=== PATIENT | female | born 1975 | race Caucasian/White ===

== ENCOUNTER 2017-02-12 04:32 | Inpatient (IN) | payer OTHER, SELFPAY ==
[2017-02-12] MEDS ORDERED: Ondansetron ODT 4 MG TAB ONE (04:58)
[2017-02-12] MEDS ORDERED: Ketorolac Tromethamine 30 MG/ML VIAL ONE (04:58)
[2017-02-12 05:03] LABS: Bilirubin Negative (Negative); Blood, Urine Large (Negative); Clarity Slightly Cloudy (Clear); Glucose, Urine (Dipstick) Negative (Negative); Leukocyte Large (Negative); Nitrite Positive (Negative); Protein, Urine (Dipstick) 100 mg/dL (Neg-Trace); Specific Gravity, Urine 1.015 (1.005-1.030); Urobilinogen 0.2 mg/dL (0.2-1.0)
[2017-02-12 05:04] LABS: Pregu Control Bar Appear? YES (CONTROL BAR); Specific Gravity 1.015 (1.002-1.036)
[2017-02-12 05:04] LABS: #Basophils 0.1 thou/uL (0.0-0.2); #Monocytes 0.9 thou/uL (0.11-0.59); #Neutrophils 15.4 thou/uL (1.40-6.50); %Basophils 0.5 % (0.0-1.0); %Eosinophils 0.2 % (0.0-10.0); %Lymphocytes 5.5 % (21.0-51.0); %Monocytes 5.4 % (0.0-10.0); %Neutrophils 88.5 % (42.0-75.0); Mean Corpuscular HGB CONC 32.4 g/dL (32.0-36.0); Mean Corpuscular Hemoglobin 29.1 pg (27.0-31.0); Mean Corpuscular Volume 89.9 fl (81.0-99.0); Mean Platelet Volume 7.1 fL (7.4-10.4); Platelet Count 296 thou/uL (130-400); RBC Distribution Width 12.8 % (11.5-14.5); Red Blood Cell (RBC) Count 4.45 mill/uL (4.20-5.40); White Blood Cell (WBC) Count 17.4 thou/uL (4.8-10.8)
[2017-02-12 05:08] LABS: Bacteria/HPF 4+ HPF (None Seen); RBC/HPF GREATER THAN 50-TNTC HPF (0-3); Squamous Epithelial 0-3 HPF (0-3)
[2017-02-12 05:20] LABS: ALT (SGPT) 48 U/L (0-55); AST (SGOT) 33 U/L (5-34); Albumin 3.8 g/dL (3.5-5.0); Alkaline Phosphatase 118 U/L (40-150); Anion Gap 17 mmol/L (10-20); BUN (Urea Nitrogen) 16 mg/dL (7.0-18.7); Bilirubin, Total 0.8 mg/dL (0.2-1.2); Calc. Creatinine Clearance 0 mL/min (70-130); Calcium 8.9 mg/dL (7.8-10.44); Carbon Dioxide 20 mmol/L (22-29); Chloride 105 mmol/L (98-107); Estimated GFR-MDRD 83; Globulin 3.6 g/dL (2.4-3.5); Glucose 110 mg/dL (70-105); Protein, Total 7.4 g/dL (6.0-8.3); Sodium 138 mmol/L (136-145)
[2017-02-12] MEDS ORDERED: Sodium Chloride 0.9% 1,000 ML ONE (05:24)
[2017-02-12] MEDS ORDERED: Morphine Sulfate 2 MG/ML SYRINGE ONE (05:35)
[2017-02-12] MEDS ORDERED: Ondansetron ODT 4 MG TAB SL PRN (05:59)
[2017-02-12] MEDS ORDERED: Ketorolac Tromethamine 30 MG/ML VIAL IVP PRN (05:59)
[2017-02-12] MEDS ORDERED: HYDROcodone/Acetaminophen 5/325 mg Tablet PO PRN ×2 (05:59)
[2017-02-12] MEDS ORDERED: Ondansetron HCl/PF 4 MG/2 ML Vial IVP PRN (05:59)
[2017-02-12] MEDS ORDERED: Dextrose 5 %-0.45 % NaCl 1,000 ML IV SCH (06:00)
[2017-02-12 06:13] VITALS: BMI 45.8
[2017-02-12] MEDS: Dextrose 5 % And 0.9 % NaCl 1,000 ML IV SCH ×3 (08:00→23:01)
[2017-02-12] MEDS ORDERED: FLU VACC QS2016-17 36MOS UP/PF 0.5 ML SYRINGE IM ONE (09:00)
--- NOTE | 2017-02-12 11:33 | HP ---
CHIEF COMPLAINT: Fever, chills, and dysuria. BRIEF HISTORY: This is a pleasant 41-year-old overweight female, who is not known to me, came to the ER with a 2-day history of fever, chills, nausea, and back pain. She was evaluated and was noticed to have a white count of 17,000, urine showing full field wbc's, and a normal lactic aci d and was decided to be admitted to the hospital for presumed pyelonephritis. She states that she i s having some back pain, but has not noticed any blood in the urine. She has had nausea, but no vom iting and as stated fever and chills. She denies any history of similar episodes in the past. She denies any trauma. She denies any chest pain or shortness of breath. PAST MEDICAL HISTORY: One admission about 3 years ago for some leg pain and shortness of breath. S he was evaluated by Cardiology and everything was negative. She was apparently started on aspirin 8 1 mg once a day. PAST SURGICAL HISTORY: x2 and one ovary removed, she is not sure which one. FAMILY HISTORY: Positive for stroke in her mom at age 43. Dad at a young age of cancer, she i s not sure what type. PSYCHOSOCIAL HISTORY: She denies any tobacco, alcohol or IV drug abuse. She is fairly active and i ndependent. ALLERGIES: PERCOCET, but she can take Vicodin. REVIEW OF SYSTEMS: CARDIOVASCULAR: Denies any chest pain, shortness of breath, palpitations, paroxysmal nocturnal dysp vinay, orthopnea, pedal edema. RESPIRATORY: Denies any chronic cough, expectoration or pleuritic type chest pain. GASTROINTESTINAL: Denies any nausea, vomiting, started does have nausea, but denies any vomiting, d iarrhea, hematemesis, melena, hematochezia. GENITOURINARY SYSTEM: Has noticed dysuria, frequency, and back pain. No hematuria. CENTRAL NERVOUS SYSTEM: No focal numbness, weakness, fainting spells. SHEENT: No difficulty with speech, vision, hearing, or swelling. PHYSICAL EXAMINATION: GENERAL: Very pleasant 41-year-old overweight female, resting comfortably, in no acute di stress. She is tolerating her breakfast. She is alert and awake and oriented x3. VITAL SIGNS: She is afebrile, T-max was 99.4, pulse 88, respirations 18, oxygen saturation 93%, blo od pressure 104/54. CARDIOVASCULAR: S1 and S2+. RESPIRATORY: Normal vesicular breath sounds. ABDOMEN: Soft, obese, nontender, bowel sounds heard in all quadrants. EXTREMITIES: Without cyanosis or clubbing. Peripheral pulses are palpable. She does have some mil d right-sided CVA angle tenderness. CENTRAL NERVOUS SYSTEM: Grossly nonfocal. LABORATORY VALUES: Sodium 138, potassium 4.0, BUN and creatinine 16 and 0.76. Blood sugar is 110. Lactic acid 1.8. AST and ALT are normal. White count is 17.4 with an H\T\H of [address] atelet count of 296. Urinalysis shows large blood, nitrite positive, greater than 50. TNTC, too nu merous to count WBC and RBC with 4+ bacteria. Urine test was negative. IMPRESSION: 1. Pyelonephritis, clinically. 2. Obesity. PLAN: 1. IV Levaquin. 2. IV fluids with D5 normal saline at 100 mL. 3. Pain control and medicines for nausea. 4. Await urine culture. 5. Activity as tolerated. 6. Recheck laboratory values in the morning. 7. Meets criteria for 2 midnight inpatient stay. Discussed with patient in detail and all question s answered.
[2017-02-12] MEDS: Acetaminophen 325 MG TAB PO PRN ×2 (13:21→21:07)
[2017-02-13 05:36] LABS: Band 6 % (5-11); Eosinophils 1 % (0-10); Hemoglobin 10.9 g/dL (12.0-16.0); Lymphocytes 22 % (21-51); MDiff Complete? YES; Mean Corpuscular HGB CONC 31.7 g/dL (32.0-36.0); Mean Corpuscular Hemoglobin 28.9 pg (27.0-31.0); Mean Corpuscular Volume 91.2 fl (81.0-99.0); Mean Platelet Volume 6.9 fL (7.4-10.4); Monocytes 9 % (0-10); Neutrophil 62 % (42-75); PLT Morphology Comment Appears Adequate; Platelet Count 272 thou/uL (130-400); RBC Distribution Width 13.1 % (11.5-14.5); RBC Morphology Normal; Red Blood Cell (RBC) Count 3.77 mill/uL (4.20-5.40); White Blood Cell (WBC) Count 10.9 thou/uL (4.8-10.8)
[2017-02-13 05:37] LABS: Anion Gap 12 mmol/L (10-20); BUN (Urea Nitrogen) 7 mg/dL (7.0-18.7); Calc. Creatinine Clearance 192 mL/min (70-130); Calcium 8.2 mg/dL (7.8-10.44); Carbon Dioxide 21 mmol/L (22-29); Chloride 110 mmol/L (98-107); Estimated GFR-MDRD Greater than 90; Glucose 109 mg/dL (70-105); Sodium 139 mmol/L (136-145)
[2017-02-13] MEDS: Dextrose 5 % And 0.9 % NaCl 1,000 ML IV SCH ×3 (07:33→14:12)
--- NOTE | 2017-02-13 16:38 | PRG ---
DATE OF SERVICE: 02/13/2017 SUBJECTIVE: Ms. Thayer is feeling much better. She denies any further episodes of chills and h er back pain is almost resolved. She denies any dysuria or hematuria. Denies any nausea or vomitin g. Tolerating her antibiotics. OBJECTIVE: VITAL SIGNS: She is afebrile. Heart rate is 75, respirations are 16, oxygen saturation 96% and blo od pressure is 128/61. CARDIOVASCULAR SYSTEM: S1 and S2 plus. RESPIRATORY SYSTEM: Normal vesicular breath sounds. ABDOMEN: Soft and nontender. Bowel sounds are heard in all quadrants. EXTREMITIES: Without cyanosis or clubbing. IMPRESSION: 1. Resolving pyelonephritis likely due to Escherichia coli. Sensitivities are pending. 2. Obesity. PLAN: 1. Stop IV fluids. 2. Continue IV Levaquin. 3. Await sensitivities. 4. Continue activity as tolerated. 5. Anticipate switching her to oral antibiotics and discharge her in the morning. 6. Recheck CBC and BMP in the morning.
[2017-02-14 05:11] LABS: Eosinophils 2 % (0-10); Hemoglobin 11.2 g/dL (12.0-16.0); Lymphocytes 28 % (21-51); MDiff Complete? YES; Mean Corpuscular HGB CONC 32.5 g/dL (32.0-36.0); Mean Corpuscular Hemoglobin 29.2 pg (27.0-31.0); Mean Platelet Volume 6.7 fL (7.4-10.4); Monocytes 15 % (0-10); Neutrophil 55 % (42-75); PLT Morphology Comment Appears Adequate; Platelet Count 309 thou/uL (130-400); RBC Distribution Width 12.6 % (11.5-14.5); RBC Morphology Normal; Red Blood Cell (RBC) Count 3.82 mill/uL (4.20-5.40); White Blood Cell (WBC) Count 8.7 thou/uL (4.8-10.8)
[2017-02-14 05:28] LABS: Anion Gap 14 mmol/L (10-20); BUN (Urea Nitrogen) 8 mg/dL (7.0-18.7); Calc. Creatinine Clearance 186 mL/min (70-130); Carbon Dioxide 22 mmol/L (22-29); Chloride 107 mmol/L (98-107); Estimated GFR-MDRD Greater than 90; Glucose 98 mg/dL (70-105); Sodium 139 mmol/L (136-145)
[2017-02-14] MEDS ORDERED: Sodium Chloride 0.9% 10 ML ONE (05:46)
[2017-02-14 08:30] VITALS: BP 125/60; TEMP 98.3
--- NOTE | 2017-02-14 15:17 | DIS ---
DATE OF ADMISSION: 02/12/2017 DATE OF DISCHARGE: 02/14/2017 PRINCIPAL DIAGNOSIS: Pyelonephritis due to Escherichia coli. SECONDARY DIAGNOSES: 1. Resolved leukocytosis. 2. Obesity. COMPLICATIONS: None. ADVERSE REACTIONS: None. PROCEDURES: None. CONSULTATIONS: None. HOSPITAL COURSE: The patient was admitted with a white count of 17,000 with fever and a urinalysis consistent with urinary tract infection and was admitted for clinical pyelonephritis. She was start ed on IV Levaquin, IV Zofran and IV fluids and she responded well. Her chills resolved on the 1st d ay. Her white count came down to 11,000 and then today it is 8.7. No further fever. Urine culture grew E. coli, which is sensitive to Levaquin and ciprofloxacin. Her IV fluids were stopped yesterd ay. She has been ambulating in the hallways. She was deemed stable for discharge to home on ciprof loxacin 500 mg b.i.d. for 10 more days. She is to continue to drink plenty of fluids. Avoid caffei nated drinks and she has been cleared to return to work. She is to call us with any questions or co ncerns. PHYSICAL EXAMINATION: VITAL SIGNS: On the day of discharge, she is afebrile, heart rate is 83, respirations are 18, oxyge n saturation is 94%, blood pressure 118/55. CARDIOVASCULAR: S1, S2 plus. RESPIRATORY: Normal vesicular breath sounds. ABDOMEN: Soft, nontender, bowel sounds heard in all quadrants. EXTREMITIES: Without cyanosis, clubbing. LABORATORY DATA: White count is 8.7, H\T\H is 11.2 and 34.4, sodium 139, potassium 4.0, BUN and cre atinine is 8 and 0.7. DISCHARGE MEDICATIONS: Ciprofloxacin 500 mg p.o. b.i.d. for 10 days and Tylenol 500 mg q.6 hours p. r.n. FOLLOWUP: She is to follow with her primary care physician and she is to call us with any questions or concerns.
[2017-02-14] MEDS ORDERED: Ciprofloxacin 500 MG TAB PO SCH (20:00)
== END 2017-02-14 09:38 | disposition home or self-care (01) | DRG 690 ==
LOC: NAV ERS 04:32 → NAV ACUTE 05:34
PROVIDERS: ADMIT Internal Medicine; ATTEND Internal Medicine
DX: N10 Acute pyelonephritis (principal); Z68.42 Body mass index [BMI] 45.0-49.9, adult; B96.20 Unspecified Escherichia coli [E. coli] as the cause of diseases classified elsewhere; E66.9 Obesity, unspecified
CPT/HCPCS: 36415; 80048; 80053; 81003; 81015; 81025; 83605; 85025; 87077; 87086; 87186; 96365; 96375; A4216; J1885; J1956; J2270; J7042; J7050; Q0162